=== PATIENT | female | born 1980 | race Caucasian/White ===

== ENCOUNTER 2020-05-12 23:59 | Emergency (ER) | payer OTHER, SELFPAY ==
[2020-05-13 00:34] VITALS: BP 137/97; PULSE 121; RESP 18; TEMP 37.2; O2SAT 98
[2020-05-13 00:41] VITALS: BP 137/97; PULSE 121; RESP 18; TEMP 37.2; O2SAT 98; BMI 37.5
--- NOTE | 2020-05-13 01:05 | ED_ITS ---
HPI - General Adult General Chief complaint: Upper Respiratory Symptoms Stated complaint: COVID SYMPTOMS Time Seen by Provider: 05/13/20 00:48 Source: patient Mode of arrival: ambulatory Limitations: no limitations History of Present Illness HPI narrative: patient comes to the emergency room complaining of generalized fatigue, chills, no fever chills. Patient states she tested positive for COVID- 19 2-3 months ago, patient states she has similar symptoms as when she started having COVID like symptoms the 1st time. Patient's is in the emergency room with similar symptoms. Related Data Home Medications Medication Instructions Recorded Confirmed No Known Home Meds 05/13/20 05/13/20 Allergies Allergy/AdvReac Type Severity Reaction Status Date / Time Penicillins [PENICILLINS] Allergy Unknown HIVES Verified 05/13/20 00:39 Review of Systems Review of Systems: Constitutional : No Weight loss, complaining of Subjective fever, chills, No Night Sweats, complaining of fatigue and generalized malaise ENT/Mouth : No Hearing loss, No Ear Pain, No Nasal Congestion, No Sinus Pain, No Hoarseness, No sore throat, No Rhinorrhea, No Swallowing Difficulty Eyes: No Eye Pain, No Swelling, No Redness, No Foreign Body, No Discharge, No Vision Changes Cardiovascular : No Chest Pain, No SOB, No Dyspnea on Exertion, No Orthopnea, No Edema, No Palpitations Respiratory : No Cough, No Sputum, No Wheezing, No Smoke Exposure, No Dyspnea Gastrointestinal : No Nausea, No Vomiting, No Diarrhea, No Constipation, No abdominal Pain, No Hematochezia, No Melena Genitourinary : no irregular bleeding, No Dysuria, No Urinary Frequency, No Hematuria, No Urinary Incontinence, No Urgency, No Flank Pain, No Urinary Flow Changes, No Hesitancy Musculoskeletal : No joint pain, No Myalgias, No Joint Swelling Skin : No Skin Lesions, No rash Neuro : No Weakness, No Numbness, No Paresthesias, No Loss of Consciousness, No Dizziness, No Headache Psych : No Anxiety/Panic, No Depression, No SI/HI/AH/VH, No Social Issues, Heme/Lymph: No Bruising, No Bleeding,No Lymphadenopathy Endocrine : No Polyuria, No Polydipsia, No Temperature Intolerance PMF Past Medical History Medical History (Updated 05/13/20 @ 01:09 by Oksana Petty MD) Asthma COVID-19 Social History Social History Alcohol intake: current Alcohol intake frequency: holidays/special occasions only Smoking Status: Current every day smoker Smoked in Last 30 Days: Yes Use of substances other than those prescribed or required for medical reasons: No Advance Directives: No Advance Directives Information Provided: No Physical Exam Vital Signs: Vital Signs: Vital Signs Temp Pulse Resp BP Pulse Ox 05/13/20 00:41 99 F 121 H 18 137/97 H 98 05/13/20 00:34 99.0 F 121 H 18 137/97 H 98 Body Mass Index 37.5 Appearance: Alert. Oriented X3. No acute distress. Eyes: Pupils equal, round and reactive to light. ENT: Pharynx normal. Neck: Normal inspection. Neck supple. No lymph nodes noted. No crepitus CVS: Normal heart rate and rhythm. Pulses normal. Normal S1 and S2 Respiratory: No respiratory distress. Breath sounds normal. No Wheezing. No rales Abdomen: Soft and nontender. No rigidity. No distention. good BS x4 Skin: Skin warm and dry. Normal skin color. Normal skin turgor. Extremities: No lower extremity edema. No lower extremity edema. No Lacerations. No Rash Neuro: Oriented X 3. No motor deficit. No sensory deficit. Moving all extermities. No slurred speech. Medical Decision Making MDM Narrative Medical decision making narrative: patient's physical exam is normal. Given her symptoms and her family's similar symptoms, we will go ahead and tested for COVID again. Discharge Plan Discharge Clinical Impression: Viral illness Patient Disposition: Home, Self-Care Instructions: Viral Syndrome (ED) Additional Instructions: you were tested for COVID-19 today, you will receive a phone call at home within 72 hours. Please remains of isolated. Please follow-up with your primary care physician tomorrow. If you have any worsening or new symptoms, please return to the emergency room or call 911 Prescriptions: No Action No Known Home Meds RF: 0
== END 2020-05-13 01:20 | disposition home or self-care (01) ==
PROVIDERS: Emergency Provider Emergency Medicine
DX: B34.9 Viral infection, unspecified (principal); R53.83 Other fatigue; Z20.828 Contact with and (suspected) exposure to other viral communicable diseases; F17.200 Nicotine dependence, unspecified, uncomplicated; Z71.6 Tobacco abuse counseling
CPT/HCPCS: 87635; 99283; 99284

== ENCOUNTER 2020-05-20 04:32 | Emergency (ER) | payer OTHER, SELFPAY ==
[2020-05-20 04:48] VITALS: BP 159/94; PULSE 100; RESP 18; TEMP 37.7; O2SAT 98; BMI 36.3
[2020-05-20 05:05] LABS: Appearance Urine CLEAR; Color Urine YELLOW; Glucose Urine UA NEG (NEG); Leukocyte Esterase Urine NEG (NEG); Nitrite Urine NEG (NEG); PH 5.5 (5.0-8.0); Specific Gravity - Urine 1.025 (1.005-1.025); Urine Blood TRACE (NEG); Urine Ketones NEG (NEG); Urine Protein NEG (NEG-TRACE)
[2020-05-20 05:06] LABS: UPreg QC Valid YES; Urine Pregnancy NEGATIVE (NEGATIVE)
[2020-05-20 05:11] LABS: Mucus Urine 2+ /LPF; RBC Urine 0-2 /HPF (0); Squamous Epithelial Cell Urine 1+ /LPF; WBC Urine 0-2 /HPF (0-4)
--- NOTE | 2020-05-20 05:13 | XR_ITS ---
EXAMINATION: XR CHEST CLINICAL INFORMATION: Cough COMPARISON: 11/23/2019 TECHNIQUE: Frontal view of the chest was obtained. FINDINGS: The lungs are well expanded. Faint patchy bilateral mid to lower lung airspace opacities are noted. No pleural effusion or pneumothorax. The cardiomediastinal silhouette is within normal limits. No osseous abnormality. XR/XR chest 1V IMPRESSION: Faint patchy bilateral mid to lower lung opacities are noted which may be infectious in nature, including viral pneumonia.
--- NOTE | 2020-05-20 05:22 | ED.GENADULT ---
HPI - General Adult General Chief complaint: General Medical Stated complaint: Covid symptoms Time Seen by Provider: 05/20/20 05:13 History of Present Illness HPI narrative: Patient is a 40-year-old female with a previous history of Coronavirus back in October. Presented today with having mild coughing lower headache. Little generalized malaise. A little burning on urination. Does not feel quite right. Some sore throat some earache associated with the symptoms as well. Patient denies any focal weakness. Denies any new medication. Denies any change in environment. Did not have any exposure to coronavirus again. Patient from home. Does not think she is . Did not miss her menstrual period. Related Data Previous Rx's Medication Instructions Recorded doxycycline hyclate 100 mg PO BID #14 cap 05/20/20 ibuprofen 400 mg PO Q6H PRN #20 tab 05/20/20 Allergies Allergy/AdvReac Type Severity Reaction Status Date / Time Penicillins [PENICILLINS] Allergy Unknown HIVES Verified 05/20/20 04:48 Review of Systems Review of Systems: Constitutional: No Weight loss, No Fever, No Chills, No Night Sweats, positive Fatigue, positive Malaise ENT/Mouth: No Hearing loss, No Ear Pain, No Nasal Congestion, No Sinus Pain, No Hoarseness, positive sore throat, No Rhinorrhea, No Swallowing Difficulty Eyes: No Eye Pain, No Swelling, No Redness, No Foreign Body, No Discharge, No Vision Changes Cardiovascular: No Chest Pain, No SOB, No Dyspnea on Exertion, No Orthopnea, No Edema, No Palpitations Respiratory: Positive Cough, No Sputum, No Wheezing, No Smoke Exposure, No Dyspnea Gastrointestinal: No Nausea, No Vomiting, No Diarrhea, No Constipation, No abdominal Pain, No Hematochezia, No Melena Genitourinary: no irregular bleeding, No Dysuria, No Urinary Frequency, No Hematuria, No Urinary Incontinence, No Urgency, No Flank Pain, No Urinary Flow Changes, No Hesitancy Musculoskeletal: No joint pain, positive Myalgias, No Joint Swelling Skin: No Skin Lesions, No rash Neuro: No Weakness, No Numbness, No Paresthesias, No Loss of Consciousness, No Dizziness, positive Headache Psych: No Anxiety/Panic, No Depression, No SI/HI/AH/VH, No Social Issues, Heme/Lymph: No Bruising, No Bleeding,No Lymphadenopathy Endocrine: No Polyuria, No Polydipsia, No Temperature Intolerance [facility] Past Medical History Medical History Asthma COVID-19 Social History Social History Alcohol intake: current Alcohol intake frequency: holidays/special occasions only Smoking Status: Current every day smoker Advance Directives: No Advance Directives Information Provided: No Physical Exam Vital Signs: Vital Signs: Vital Signs Temp Pulse Resp BP Pulse Ox 05/20/20 04:48 99.9 F 100 18 159/94 H 98 Body Mass Index 36.3 Appearance: Alert. Oriented X3. No acute distress. Eyes: Pupils equal, round and reactive to light. ENT: Pharynx normal. Neck: Normal inspection. Neck supple. No lymph nodes noted. No crepitus CVS: Normal heart rate and rhythm. Pulses normal. Normal S1 and S2 Respiratory: No respiratory distress. Breath sounds normal. No Wheezing. No rales Abdomen: Soft and nontender. No rigidity. No distention. good BS x4 Skin: Skin warm and dry. Normal skin color. Normal skin turgor. Extremities: No lower extremity edema. Neurovascular intact to all extremities. No Lacerations. No Rash Neuro: Oriented X 3. No motor deficit. No sensory deficit. Moving all extermities. No slurred speech Medical Decision Making MDM Narrative Medical decision making narrative: Patient's chest x-ray showed a possible pneumonia. Otherwise well appearing. Will retest patient for coronavirus. Will start patient on doxycycline. Urine was negative for infection. Patient's test was negative. O2 sats 99% on room air. Vital signs are stable. Will discharge patient home. Close follow-up on an outpatient basis. Differential Diagnosis Differential Diagnosis: Pneumonia, COVID, strep throat, otitis media, UTI Lab Data Lab results reviewed: Yes I reviewed the patient's lab results. Labs: Lab Results 05/20/20 05/20/20 Range/Units 04:59 05:16 POC Glucose 136 H (60-115) mg/dL Urine Color YELLOW Urine Appearance CLEAR Urine pH 5.5 (5.0-8.0) Ur Specific [place] 1.025 (1.005-1.025) Urine Protein NEG (NEG-TRACE) MG/DL Urine Glucose (UA) NEG (NEG) MG/DL Urine Ketones NEG (NEG) MG/DL Urine Blood TRACE (NEG) Urine Nitrite NEG (NEG) Ur Leukocyte Esterase NEG (NEG) Urine RBC 0-2 (0) /HPF Urine WBC 0-2 (0-4) /HPF Ur Squamous Epith Cells 1+ /LPF Urine Bacteria NONE /LPF Urine Mucus 2+ /LPF Urine Test NEGATIVE (NEGATIVE) Discharge Plan Discharge Clinical Impression: Viral illness, COVID-19, Pneumonia Patient Disposition: Home, Self-Care Instructions: Community Acquired Pneumonia (ED), Viral Syndrome (ED), COVID-19 (Coronavirus Disease 2019) (ED) Additional Instructions: Please follow strict home quarantine to all symptom has resolved for at least 2 days. Prescriptions: New ibuprofen 400 mg tablet 400 mg PO Q6H PRN (Reason: pain) Qty: 20 RF: 0 doxycycline hyclate 100 mg capsule 100 mg PO BID Qty: 14 RF: 0 Referrals: Physician,Unknown [Primary Care Provider] - 2 days
[2020-05-20 05:23] LABS: Glucose, Whole Blood 136 mg/dL (60-115)
--- NOTE | 2020-05-20 05:25 | PC.NURSE ---
pt yu x 3 with equal and non labored rr. pt skin wpd. pt ambulates without assistance. pt speaking in cler and full sentences. pt stated she has multiple covid like symptoms including chills, fevers, weakness ect. tested negative last . pt swabbed for covid. states she took ibuprofen 1 hour lighter captain. temp 99.9 orally.
--- NOTE | 2020-05-20 06:16 | PC.NURSE ---
pt medicated with first antibiotic and d.c
== END 2020-05-20 06:17 | disposition home or self-care (01) ==
PROVIDERS: Emergency Provider Emergency Medicine Emergency Medical Services
DX: U07.1 COVID-19 (principal); J18.9 Pneumonia, unspecified organism; R05 Cough; B34.9 Viral infection, unspecified; F17.200 Nicotine dependence, unspecified, uncomplicated; Z71.6 Tobacco abuse counseling; Z79.899 Other long term (current) drug therapy
CPT/HCPCS: 71045; 81001; 81025; 82947; 99283

== ENCOUNTER 2020-05-22 20:14 | Inpatient (IN) | payer OTHER, SELFPAY ==
--- NOTE | 2020-05-22 22:50 | XR_ITS ---
EXAMINATION: XR CHEST CLINICAL INFORMATION: Cough, shortness of breath COMPARISON: Chest x-ray 11/23/2019, 05/20/2020 TECHNIQUE: Frontal portable view of the chest was obtained. 11:03 PM FINDINGS: Nodular bilateral airspace opacities have progressed since prior chest x-ray of 05/20/2020. No pleural effusion. Cardiac and mediastinal contours are unchanged. No pulmonary vascular congestion. XR/XR chest 1V IMPRESSION: Worsening multifocal bilateral airspace opacities since prior exam of 05/20/2020.
--- NOTE | 2020-05-22 23:05 | ED_ITS ---
HPI - SOB/Dyspnea General Chief Complaint: Upper Respiratory Symptoms Stated Complaint: FLU LIKE Time Seen by Provider: 05/22/20 21:18 Source: patient Mode of arrival: ambulatory Limitations: no limitations History of Present Illness HPI Narrative: this is a pleasant 40-year-old female with past medical history significant for asthma who presents today with complaint of cough and worsening shortness of breath. States she was here on May 20 ( 2 days ago) with similar symptoms at that time was diagnosed with pneumonia given antibiotics of doxycycline states she has been taking this however her symptoms have become worse. She does feel chills and body aches however there is no fever. MD elicited complaint: shortness of breath Pertinent past history: asthma Onset (ago): day(s) Context: recent illness Timing: constant Severity: moderate Relieving factors: nothing Associated symptoms: chest pain, pain with inspiration, cough and wheezing Related Data Previous Rx's Medication Instructions Recorded doxycycline hyclate 100 mg PO BID #14 cap 05/20/20 ibuprofen 400 mg PO Q6H PRN #20 tab 05/20/20 Allergies Allergy/AdvReac Type Severity Reaction Status Date / Time Penicillins [PENICILLINS] Allergy Unknown HIVES Verified 05/20/20 04:48 Review of Systems Review of Systems: Constitutional: No Weight loss, No Fever, + Chills, No Night Sweats, No Fatigue, No Malaise ENT/Mouth: No Hearing loss, No Ear Pain, No Nasal Congestion, No Sinus Pain, No Hoarseness, No sore throat, No Rhinorrhea, No Swallowing Difficulty Eyes: No Eye Pain, No Swelling, No Redness, No Foreign Body, No Discharge, No Vision Changes Cardiovascular: + cough / Chest Pain, + SOB, No Dyspnea on Exertion, No Orthopnea, No Edema, No Palpitations Respiratory: + Cough, No Sputum, No Wheezing, No Smoke Exposure, No Dyspnea Gastrointestinal: No Nausea, No Vomiting, No Diarrhea, No Constipation, No abdominal Pain, No Hematochezia, No Melena Genitourinary: no irregular bleeding, No Dysuria, No Urinary Frequency, No Hematuria, No Urinary Incontinence, No Urgency, No Flank Pain, No Urinary Flow Changes, No Hesitancy Musculoskeletal: No joint pain, No Myalgias, No Joint Swelling Skin: No Skin Lesions, No rash Neuro: No Weakness, No Numbness, No Paresthesias, No Loss of Consciousness, No Dizziness, No Headache Psych: No Anxiety/Panic, No Social Issues Heme/Lymph: No Bruising, No Bleeding,No Lymphadenopathy Endocrine: No Polyuria, No Polydipsia, No Temperature Intolerance Yes all other systems are reviewed and are negative [facility] Past Medical History Attestation statement: The following information was validated with the patient. Medical History (Updated 05/23/20 @ 01:49 by Barron Magdaleno NP) Asthma COVID-19 Surgical History (Updated 05/23/20 @ 00:37 by Wendy Crandall) H/O hernia repair H/O: Social History Social History Alcohol intake: current Alcohol intake frequency: holidays/special occasions only Smoking Status: Current every day smoker Advance Directives: No Advance Directives Information Provided: No Physical Exam Vital Signs: Vital Signs: Vital Signs Temp Pulse Resp BP Pulse Ox 05/23/20 01:35 100 20 144/91 H 98 05/23/20 00:32 100.2 F 95 20 146/94 H 98 Body Mass Index 36.2 Reviewed Const: General: cooperative and healthy appearing; No acute distress or i ntoxicated appearing Nutritional Appearance: average body habitus Orientation/consciousness: patient oriented x3 HENMT: Head: Yes normal to inspection Ears: hearing grossly normal bilaterally Eyes: General: appearance normal, both eyes and all related structures Visual Connell: normal visual connell by confrontation Neck: Neck: Yes normal visual inspection and No tender Thyroid: Thyroid normal Chest: Chest palpation & inspection: normal inspection of the chest Resp: Effort & Inspection: normal respiratory effort Auscultation: wheezes ( Mild forced expiratory) upper bilaterally Cardio: Jugular venous distension: no JVD GI: Inspection: Yes normal to inspection Percussion: Yes normal to percussion Auscultation: normal bowel sounds : General: Yes no CVA tenderness Back/Spine/Pelvis: Back: no CVA tenderness Skin: General skin exam: no rashes or lesions noted Neuro: General: patient oriented x3 Extrem: General: Yes normal to inspection Course Course Course Narrative: 2119 interviewed 40-year-old female with above history of asthma recent dx c pna dc on doxy - returns feeling worse. This time will go ahead and check COVID certification labs, lactic acid and blood cultures. Will treat with nebs / IV steroids. Sepsis focused exam completed. Reevaluation(s) Reevaluation #1: 2305 Reportedly due to shortage of staffing patient still has not had labs done yet. 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 given no wound infection on her previous chest x-ray with suspected pneumonia Levaquin was already ordered given her allergy to penicillin. 0032 Now with wbc<, HR, infiltrate on cxr meets sepsis criteria as suspected given Fluids/Levaquin. No criteria for severe sepsis. 0130 CDW hospitalist for admission- MDM - SOB/Dyspnea Differential Diagnosis Differential diagnosis: Likely acute exacerbation of chronic obstructive airways disease, pneumonia and asthma with exacerbation; Unlikely congestive heart failure, pulmonary embolism, pleural effusion, sleep apnea and anemia Lab Data Result diagrams: 05/23/20 00:01 05/23/20 00:01 Labs: Lab Results 05/23/20 05/23/20 05/23/20 Range/Units 00:01 00:01 00:01 WBC 4.3 L (4.8-10.8) X10*3/uL RBC 4.26 (4.20-5.50) X10*6/uL Hgb 11.2 L (12.0-16.0) g/dl Hct 37.5 (37-47) % MCV 88.0 (80-98) fL MCH 26.3 L (27.0-33.0) pg MCHC 29.9 L (31.0-35.0) g/dl RDW 16.4 H (11.0-16.0) % Plt Count 276 (160-400) X10*3/uL MPV 10.9 (9.4-12.3) fL Immature Gran % (Auto) 1.2 H (0.0-0.4) % Neut % (Auto) 53.9 (45-73) % Lymph % (Auto) 30.7 (20-40) % Hale % (Auto) 13.8 H (2-11) % Eos % (Auto) 0.2 (0-4) % Baso % (Auto) 0.2 (0-2) % Lymph # (Auto) 1.3 (1.2-4.9) X10*3/uL Hale # (Auto) 0.6 (0.1-1.2) X10*3/uL Eos # (Auto) 0.0 (0.0-0.4) X10*3/uL Baso # (Auto) 0.0 (0.0-0.2) X10*3/uL Abs Immat Gran (auto) 0.05 H (0.00-0.03) X10*3/uL Absolute Neuts (auto) 2.3 (2.0-8.3) X10*3/uL Absolute Nucleated RBC 0.000 (0.0-0.012) X10*3/uL Nucleated RBC % (auto) 0.0 (0.0-0.2) /100WBC Sodium 137 (135-145) mmol/L Potassium 4.3 (3.3-5.1) mmol/l Chloride 103 (96-108) mmol/L Carbon Dioxide 23 (22-29) mmol/L Anion Gap 15 (12-20) BUN 10 (9-16) mg/dL Creatinine 0.75 (0.5-1.4) mg/dL Estim Creat Clear Calc 109.0 Estimated GFR > 60 Random Glucose 101 (60-115) mg/dL Lactic Acid 1.0 (0.5-2.0) mmol/L Calcium 8.4 (8.4-10.2) mg/dL Total Bilirubin 0.3 (0.0-1.0) mg/dL AST 55 H (5-31) U/L ALT 84 H (0-31) U/L Alkaline Phosphatase 103 (39-117) U/L Troponin I High Sens (<3.5-17.0) ng/L B-Natriuretic Peptide (<100) pg/mL Total Protein 7.9 (6.5-8.0) g/dL Albumin 4.4 (3.5-5.0) g/dL Coronavirus (PCR) (Negative) 05/23/20 05/23/20 Range/Units 00:01 00:19 WBC (4.8-10.8) X10*3/uL RBC (4.20-5.50) X10*6/uL Hgb (12.0-16.0) g/dl Hct (37-47) % MCV (80-98) fL MCH (27.0-33.0) pg MCHC (31.0-35.0) g/dl RDW (11.0-16.0) % Plt Count (160-400) X10*3/uL MPV (9.4-12.3) fL Immature Gran % (Auto) (0.0-0.4) % Neut % (Auto) (45-73) % Lymph % (Auto) (20-40) % Hale % (Auto) (2-11) % Eos % (Auto) (0-4) % Baso % (Auto) (0-2) % Lymph # (Auto) (1.2-4.9) X10*3/uL Hale # (Auto) (0.1-1.2) X10*3/uL Eos # (Auto) (0.0-0.4) X10*3/uL Baso # (Auto) (0.0-0.2) X10*3/uL Abs Immat Gran (auto) (0.00-0.03) X10*3/uL Absolute Neuts (auto) (2.0-8.3) X10*3/uL Absolute Nucleated RBC (0.0-0.012) X10*3/uL Nucleated RBC % (auto) (0.0-0.2) /100WBC Sodium (135-145) mmol/L Potassium (3.3-5.1) mmol/l Chloride (96-108) mmol/L Carbon Dioxide (22-29) mmol/L Anion Gap (12-20) BUN (9-16) mg/dL Creatinine (0.5-1.4) mg/dL Estim Creat Clear Calc Estimated GFR Random Glucose (60-115) mg/dL Lactic Acid (0.5-2.0) mmol/L Calcium (8.4-10.2) mg/dL Total Bilirubin (0.0-1.0) mg/dL AST (5-31) U/L ALT (0-31) U/L Alkaline Phosphatase (39-117) U/L Troponin I High Sens < 3.5 (<3.5-17.0) ng/L B-Natriuretic Peptide < 10 (<100) pg/mL Total Protein (6.5-8.0) g/dL Albumin (3.5-5.0) g/dL Coronavirus (PCR) POSITIVE A (Negative) ECG Data Interpretation: Sinus tachycardia [address] segment changes P.r. interval wnl Discharge Plan Discharge Clinical Impression: COVID-19, Asthma, Pneumonia Patient Disposition: Admitted As Inpatient Prescriptions: No Action ibuprofen 400 mg tablet 400 mg PO Q6H PRN (Reason: pain) Qty: 20 RF: 0 doxycycline hyclate 100 mg capsule 100 mg PO BID Qty: 14 RF: 0
--- NOTE | 2020-05-22 23:40 | PC.NURSE ---
FIRST CONTACT WITH PT. BROUGHT TO 1 FOR TREATMENT. SITTING UP IN BED SKIN PWD RESPIRATIONS EVEN SLIGHTLY LABORED WITH MOVEMENT AND COUGH. REPORTS 2 WEEKS OF PROGRESSIVE ILLNESS. NEGATIVE COVID 05/12, REPEAT WITH NO RESULTS 05/19. DC WITH PNEUMONIA 05/19 ON PO ANTIBIOTICS WITH NO IMPROVEMENT. FAMILY MEMBER COVID +. 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 AWAITING FURTHER TESTING.
[2020-05-22 23:45] VITALS: O2SAT 98
[2020-05-23] VITALS (9 sets, daily range): BP systolic 114–164; BP diastolic 68–94; PULSE 48–100; RESP 16–20; TEMP 36.1–37.9; O2SAT 96–98; BMI 36.2
[2020-05-23] MEDS: 0.9 % Sodium Chloride 500 ML 1000 ML IV (00:07)
[2020-05-23] MEDS: levoFLOXacin/D5W 750 MG/150 ML PIGGYBACK 100 MG IV (00:22)
[2020-05-23 00:23] LABS: MANUAL DIFF FLAG NO
[2020-05-23] MEDS: methylPREDNISolone Sod Succ/PF 125 MG/2 ML VIAL IVPUSH (00:23)
[2020-05-23 00:24] LABS: Basophils Percent Auto 0.2 % (0-2); Eosinophils Percent Auto 0.2 % (0-4); Hematocrit 37.5 % (37-47); Hemoglobin 11.2 g/dl (12.0-16.0); Imm Gran Abs Auto 0.05 X10*3/uL (0.00-0.03); Imm Gran Pct Auto 1.2 % (0.0-0.4); Lymphocytes Absolute Auto 1.3 X10*3/uL (1.2-4.9); Lymphocytes Percent Auto 30.7 % (20-40); Mean Corpuscular HGB Conc 29.9 g/dl (31.0-35.0); Mean Corpuscular Hemoglobin 26.3 pg (27.0-33.0); Mean Platelet Volume 10.9 fL (9.4-12.3); Monocytes Absolute Auto 0.6 X10*3/uL (0.1-1.2); Monocytes Percent Auto 13.8 % (2-11); Neutrophils Absolute Auto 2.3 X10*3/uL (2.0-8.3); Neutrophils Percent Auto 53.9 % (45-73); Platelet Count 276 X10*3/uL (160-400); Red Blood Count 4.26 X10*6/uL (4.20-5.50); Red Cell Distribution Width 16.4 % (11.0-16.0); White Blood Count 4.3 X10*3/uL (4.8-10.8)
[2020-05-23 00:55] LABS: Alanine Aminotransferase 84 U/L (0-31); Albumin Level 4.4 g/dL (3.5-5.0); Alkaline Phosphatase 103 U/L (39-117); Anion Gap 15 (12-20); Aspartate Amino Transferase 55 U/L (5-31); Bilirubin Total 0.3 mg/dL (0.0-1.0); Blood Urea Nitrogen 10 mg/dL (9-16); Calcium 8.4 mg/dL (8.4-10.2); Carbon Dioxide 23 mmol/L (22-29); Chloride 103 mmol/L (96-108); Estimated Glomerular Filt Rate > 60; Glucose Random 101 mg/dL (60-115); Potassium 4.3 mmol/l (3.3-5.1); Sodium 137 mmol/L (135-145); Total Protein 7.9 g/dL (6.5-8.0)
[2020-05-23 00:57] LABS: B Type Natriuretic Peptide < 10 pg/mL (<100); Troponin-I High Sensitivity < 3.5 ng/L (<3.5-17.0)
[2020-05-23] MEDS: Albuterol Sulfate 90 MCG 8 GM INHALER 4 PUFF INHALE (01:21)
[2020-05-23] MEDS: Acetaminophen 325 MG TABLET 975 MG PO (01:32)
[2020-05-23 01:40] LABS: SARS COV2 PCR INHOUSE POSITIVE (Negative)
[2020-05-23 01:54] LABS: Prothrombin Time 11.8 SEC (10.8-13.0)
[2020-05-23 01:57] LABS: D Dimer 238 NG/ML; Partial Thromboplastin Time 29.8 SEC (24.1-38.0)
--- NOTE | 2020-05-23 02:47 | PC.NURSE ---
PT RESTING IN BED AWAITING HOSPITALIST CONSULT. VSS. REPORTS CONTINUED CHEST WALL PAIN AND BODYACHES SOMEWHAT IMPROVED WITH PREVIOUSLY ADMINISTERED MEDICATION.
[2020-05-23 02:50] LABS: Adenovirus PCR Not Detected (Not Detect.); Bordetella parapertussis PCR Not Detected (Not Detect.); Bordetella pertussis PCR Not Detected (Not Detect.); Chlamydia pneumoniae PCR Not Detected (Not Detect.); Coronavirus 229E PCR Not Detected (Not Detect.); Coronavirus HKU1 PCR Not Detected (Not Detect.); Coronavirus NL63 PCR Not Detected (Not Detect.); Coronavirus OC43 PCR Not Detected (Not Detect.); Human metapneumovirus PCR Not Detected (Not Detect.); Influenza A PCR Not Detected (Not Detect.); Influenza B PCR Not Detected (Not Detect.); Mycoplasma pneumoniae PCR Not Detected (Not Detect.); Parainfluenza 1 PCR Not Detected (Not Detect.); Parainfluenza 2 PCR Not Detected (Not Detect.); Parainfluenza 3 PCR Not Detected (Not Detect.); Parainfluenza 4 PCR Not Detected (Not Detect.); RSV PCR Not Detected (Not Detect.); Rhino/Enterovirus PCR Not Detected (Not Detect.)
--- NOTE | 2020-05-23 04:49 | P.HPIM_ITS ---
History of Present Illness Date of Service: 05/23/20 Chief Complaint: shortness of breath this is a 40-year-old female with no significant past medical history of presents to the hospital with complaints of worsening shortness of breath, cough, fever, overall not feeling well. Patient reports that her symptoms started about a week ago with sweating and fevers, she came to the ED, with this is for COVID and was negative. She continued to have worsening symptoms of shortness of breath and cough and return to the hospital on Tuesday of this week and was tested once again for COVID-19 but somehow the results were mislabeled and she never received her test results for the repeat COVID but chest x-ray showed pneumonia and she was sent home on doxycycline. She returns today stating that she continues to feel short of breath, fever, chills, cough, sputum production, low appetite, loss of smell and taste, diarrhea. She reports that her cousin who lives in the same household who works [employer] was tested positive for coronavirus this week and believes that she got a from him. no headache, change in vision, no urinary symptoms and no lower extremity edema. No weakness numbness or tingling. On arrival to the ED patient hemodynamically stable satting 97% on room air. labs are significant for a WBC count of 4.3, AST of 55 ALT of 84, COVID-19 positive, chest x-ray showing worsening multifocal bilateral airspace opacities since prior exam of 05/20 Past medical history: Reports history of asthma when she was a child, but currently is not asthmatic past surgical history: Denies family history:Denies social history: Former smoker, currently does not smoke, no alcohol or illicit drugs Review of Systems Review of Systems: Yes all other systems are reviewed and are negative [facility] Medical History Asthma COVID-19 Surgical History H/O hernia repair H/O: Social History Alcohol intake: never Smoking Status: Current every day smoker Smoked in Last 30 Days: No Advance Directives: No Advance Directives Information Provided: No Meds Allergies Allergy/AdvReac Type Severity Reaction Status Date / Time Penicillins [PENICILLINS] Allergy Unknown HIVES Verified 05/20/20 04:48 Physical Exam Vital Signs and Narrative: Vital Signs: Last Vital Signs Temp 99.9 F 05/23/20 02:37 Pulse 96 05/23/20 02:37 Resp 20 05/23/20 02:37 BP 136/88 05/23/20 02:37 Pulse Ox 97 05/23/20 02:37 Body Mass Index 36.2 Const: General: cooperative and no acute distress Orientation/consciousness: patient oriented x3 Eyes: General: appearance normal, both eyes and all related structures Pupils: Equal, round and reactive pupils present Resp: Other: patient tachypnea, sitting up in bed, satting 97% on room air. Cardio: Rate: regular rate Rhythm: regular rhythm GI: Palpation (GI): Soft to palpation Auscultation: normal bowel sounds Skin: General skin exam: no rashes or lesions noted Neuro: General: patient oriented x3 Cranial nerves: Yes Equal, round and reactive pupils present Cognition (Neuro): normal cognition Extrem: General: Yes normal to inspection and Yes no pedal edema Results Labs Labs: Laboratory Tests 05/23/20 05/23/20 05/23/20 00:01 00:01 00:01 WBC 4.3 L RBC 4.26 Hgb 11.2 L Hct 37.5 MCV 88.0 MCH 26.3 L MCHC 29.9 L RDW 16.4 H Plt Count 276 MPV 10.9 Immature Gran % (Auto) 1.2 H Neut % (Auto) 53.9 Lymph % (Auto) 30.7 [place] % (Auto) 13.8 H Eos % (Auto) 0.2 Baso % (Auto) 0.2 Lymph # (Auto) 1.3 [place] # (Auto) 0.6 Eos # (Auto) 0.0 Baso # (Auto) 0.0 Abs Immat Gran (auto) 0.05 H Absolute Neuts (auto) 2.3 Absolute Nucleated RBC 0.000 Nucleated RBC % (auto) 0.0 PT 11.8 INR 1.0 APTT 29.8 D-Dimer 238 Sodium 137 Potassium 4.3 Chloride 103 Carbon Dioxide 23 Anion Gap 15 BUN 10 Creatinine 0.75 Estim Creat Clear Calc 109.0 Estimated GFR > 60 Random Glucose 101 Lactic Acid Calcium 8.4 Total Bilirubin 0.3 AST 55 H ALT 84 H Alkaline Phosphatase 103 Troponin I High Sens B-Natriuretic Peptide Total Protein 7.9 Albumin 4.4 Coronavirus (PCR) 05/23/20 05/23/20 05/23/20 00:01 00:01 00:19 WBC RBC Hgb Hct MCV MCH MCHC RDW Plt Count MPV Immature Gran % (Auto) Neut % (Auto) Lymph % (Auto) [place] % (Auto) Eos % (Auto) Baso % (Auto) Lymph # (Auto) [place] # (Auto) Eos # (Auto) Baso # (Auto) Abs Immat Gran (auto) Absolute Neuts (auto) Absolute Nucleated RBC Nucleated RBC % (auto) PT INR APTT D-Dimer Sodium Potassium Chloride Carbon Dioxide Anion Gap BUN Creatinine Estim Creat Clear Calc Estimated GFR Random Glucose Lactic Acid 1.0 Calcium Total Bilirubin AST ALT Alkaline Phosphatase Troponin I High Sens < 3.5 B-Natriuretic Peptide < 10 Total Protein Albumin Coronavirus (PCR) POSITIVE A Imaging Chest x-ray: Radiologist's impression: IMPRESSION: Worsening multifocal bilateral airspace opacities since prior exam of 05/20/2020.
[2020-05-23] MEDS: Enoxaparin Sodium 40 MG/0.4 ML SYRINGE SUBCUT (05:09)
[2020-05-23] MEDS: 0.9 % Sodium Chloride Flush 3 ML SYRINGE IVFLUSH ×2 (07:51→14:34)
[2020-05-23 09:22] LABS: SARS-CoV-2 PCR Detected (Not Detect.)
--- NOTE | 2020-05-23 09:31 | MHC.CM.PN ---
pt lives c s.o. in their home. 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 pt's s.o. can help her if she needs, this will include a ride home at dc. pt denies the need for vna at this time. dc plan is home no svcs. cm to cont. to follow.
[2020-05-23] MEDS: dexAMETHasone sod phosphate 4 MG/ML VIAL 6 MG IVPUSH (09:57)
--- NOTE | 2020-05-23 16:35 | W.PM.IDCN ---
History of Present Illness Data of Consult Service Date: 05/23/20 Requesting physician: Austin Shi Primary Care Provider: Unknown Physician HPI Reason for consult: shortness of breath She presents with shortness of breath She has some increased infiltrate lungs She says she was diagnosed COVID in October Now she was around her cousin who has COVID Review of Systems Review of Systems: Yes all other systems are reviewed and are negative PMFSH Past Medical History Medical History Asthma COVID-19 Family History Family history: reviewed and not pertinent Surgical History Surgical History H/O hernia repair H/O: Social History Social History Household Members: Family Housing: House Do you presently have visiting nurse or other home services: No Alcohol intake: never Smoking Status: Current some day smoker Tobacco Type: Cigarette Smoked in Last 30 Days: No Patient Interested in Nicotine Replacement: No Patient Given Instructions on How to Stop Smoking: No Second Hand Smoke Exposure: No Use of substances other than those prescribed or required for medical reasons: No Currently Displaying Signs/Symptoms of Drug Intoxication Withdrawal: No Have you been hit, kicked, punched, or otherwise hurt by someone within the past year? If so, by whom?: No Do you feel safe in your current relationship?: No Is there a partner from a previous relationship who is making you feel unsafe now?: No Are you made to feel afraid or neglected: No Advance Directives: No Advance Directives Information Provided: No Do you have thoughts of harming others: None Do you have a plan to hurt others: No Plan Recently lost weight without trying: No service: No Current occupational status: employed Meds Allergies Allergy/AdvReac Type Severity Reaction Status Date / Time Penicillins [PENICILLINS] Allergy Unknown HIVES Verified 05/20/20 04:48 Physical Exam Vital Signs: Vital Signs: Vital Signs Temp Pulse Resp BP Pulse Ox 05/23/20 16:00 97.6 F 75 16 136/90 H 97 05/23/20 12:00 97.0 F 82 18 148/93 H 96 05/23/20 08:00 98.3 F 86 20 133/89 97 05/23/20 05:06 98.6 F 86 20 126/92 H 97 05/23/20 02:37 99.9 F 96 20 136/88 97 05/23/20 01:35 100 20 144/91 H 98 05/23/20 00:32 100.2 F 95 20 146/94 H 98 05/22/20 23:45 98 Body Mass Index 36.2 Const: General: cooperative HENMT: Head: Yes normal to inspection Mouth: Normal oral and palatal mucosa present Resp: Effort & Inspection: able to speak in complete sentences and decreased respiratory effort Cardio: Rate: regular rate Rhythm: regular rhythm GI: Inspection: Yes normal to inspection Extrem: General: Yes normal to inspection Assessment and Plan (1) COVID-19: Problem details: She has some hypoxia when walking She has been doing better however Possible COVID reinfection,doubt HIV,atypical Status: Acute Steroids Check RVP ? atypical Check HIV Check COVID antibodies (2) Asthma: Status: Acute Results Labs CBC & Chem 7: 05/24/20 08:19 05/24/20 08:19 Labs: Short CBC 05/23/20 Range/Units 00:01 WBC 4.3 L (4.8-10.8) X10*3/uL Hgb 11.2 L (12.0-16.0) g/dl Hct 37.5 (37-47) % Plt Count 276 (160-400) X10*3/uL BMP 05/23/20 00:01 Sodium 137 Potassium 4.3 Chloride 103 Carbon Dioxide 23 BUN 10 Creatinine 0.75 Calcium 8.4 Liver Function 05/23/20 Range/Units 00:01 Total Bilirubin 0.3 (0.0-1.0) mg/dL AST 55 H (5-31) U/L ALT 84 H (0-31) U/L Alkaline Phosphatase 103 (39-117) U/L Albumin 4.4 (3.5-5.0) g/dL Urine 05/23/20 Range/Units 00:04 Urine Color Cancelled Urine Appearance Cancelled Urine pH Cancelled Ur Specific [place] Cancelled Urine Protein Cancelled Urine Glucose (UA) Cancelled
[2020-05-24] MEDS: 0.9 % Sodium Chloride Flush 3 ML SYRINGE IVFLUSH ×3 (00:27→15:49)
[2020-05-24 03:36] VITALS: BP 124/77; PULSE 93; RESP 18; TEMP 37.2; O2SAT 95
[2020-05-24] MEDS: Enoxaparin Sodium 40 MG/0.4 ML SYRINGE SUBCUT (05:18)
[2020-05-24 08:00] VITALS: BP 138/89; PULSE 88; RESP 18; TEMP 36.1; O2SAT 97
[2020-05-24 08:55] LABS: MANUAL DIFF FLAG NO
[2020-05-24 09:04] LABS: Basophils Percent Auto 0.1 % (0-2); Hematocrit 39.1 % (37-47); Hemoglobin 11.6 g/dl (12.0-16.0); Imm Gran Abs Auto 0.07 X10*3/uL (0.00-0.03); Imm Gran Pct Auto 0.7 % (0.0-0.4); Lymphocytes Absolute Auto 1.6 X10*3/uL (1.2-4.9); Lymphocytes Percent Auto 16.1 % (20-40); Mean Corpuscular HGB Conc 29.7 g/dl (31.0-35.0); Mean Corpuscular Hemoglobin 26.2 pg (27.0-33.0); Mean Corpuscular Volume 88.5 fL (80-98); Mean Platelet Volume 11.8 fL (9.4-12.3); Neutrophils Percent Auto 73.1 % (45-73); Platelet Count 232 X10*3/uL (160-400); Red Blood Count 4.42 X10*6/uL (4.20-5.50); Red Cell Distribution Width 16.3 % (11.0-16.0); White Blood Count 9.6 X10*3/uL (4.8-10.8)
[2020-05-24 09:30] LABS: Anion Gap 18 (12-20); Blood Urea Nitrogen 13 mg/dL (9-16); Calcium 8.6 mg/dL (8.4-10.2); Carbon Dioxide 23 mmol/L (22-29); Chloride 103 mmol/L (96-108); Creatinine Clr Calc Pharmacy 116.8; Estimated Glomerular Filt Rate > 60; Glucose Random 119 mg/dL (60-115); Potassium 3.9 mmol/l (3.3-5.1); Sodium 140 mmol/L (135-145)
[2020-05-24 09:34] LABS: Alanine Aminotransferase 71 U/L (0-31); Albumin Level 4.3 g/dL (3.5-5.0); Alkaline Phosphatase 89 U/L (39-117); Aspartate Amino Transferase 44 U/L (5-31); Bilirubin Direct < 0.2 mg/dL (0.0-0.5); Bilirubin Total 0.3 mg/dL (0.0-1.0)
[2020-05-24] MEDS: dexAMETHasone sod phosphate 4 MG/ML VIAL 6 MG IVPUSH (09:44)
[2020-05-24] MEDS: Acetaminophen 325 MG TABLET 650 MG PO ×2 (09:53→18:44)
[2020-05-24 11:19] VITALS: BP 108/71; PULSE 90; RESP 18; TEMP 36.8; O2SAT 95
--- NOTE | 2020-05-24 13:40 | HO.PM.IMPN ---
Subjective Subjective Date of Service: 05/24/20 Review of Systems Patient still feels short of breath, with walking feels more winded. Denies any chest pain or abdominal pain or fever or chills or nausea vomiting or diarrhea. Denies any urinary complaints. Physical Exam Vital Signs: Vital Signs: Vital Signs Temp Pulse Resp BP Pulse Ox 05/24/20 11:19 98.2 F 90 18 108/71 95 05/24/20 08:00 96.9 F 88 18 138/89 97 05/24/20 03:36 98.9 F 93 18 124/77 95 05/23/20 23:52 98.0 F 48 L 18 114/68 97 05/23/20 19:59 97.4 F 79 20 164/88 H 96 05/23/20 16:00 97.6 F 75 16 136/90 H 97 Body Mass Index 36.2 Physical exam: Cvs: [id number], [id number] , no murmur res: Grossly fair entry, slightly diminished at bases, also has some wheezing abd: no rebound or guarding ,nt, bs present. ext pulses present , no cyanosis neuro: axo3 , nonfocal. Objective Data Current Medications Generic Name Dose Route Start Last Admin Trade Name Freq PRN Reason Stop Dose Admin Acetaminophen 650 mg 05/23/20 04:38 05/24/20 09:53 Acetaminophen 325 Mg Tablet PO 650 mg Q6H PRN Administration Pain, Mild (Pain Scale 1-3) Albuterol Sulfate 2 puff 05/23/20 04:58 Albuterol Sulfate 90 Mcg 8 Gm Inhaler INHALE RQ4H PRN Shortness of Breath/Wheezing Dexamethasone Sodium Phosphate 6 mg 05/23/20 09:00 05/24/20 09:44 Dexamethasone Sod Phosphate 4 Mg/Ml Vial IVPUSH 6 mg DAILY SIMRAN Administration Docusate Sodium 100 mg 05/23/20 04:38 Docusate Sodium 100 Mg Capsule PO DAILY PRN Constipation Enoxaparin Sodium 40 mg 05/23/20 06:00 05/24/20 05:18 Enoxaparin Sodium 40 Mg/0.4 Ml Syringe SUBCUT 40 mg Q24H SIMRAN Administration Ondansetron HCl 4 mg 05/23/20 04:38 Ondansetron Hcl 4 Mg/2 Ml Vial IVPUSH Q8H PRN Nausea and Vomiting Sodium Chloride 3 ml 05/23/20 08:00 05/24/20 09:44 0.9 % Sodium Chloride Flush 3 Ml Syringe IVFLUSH 3 ml QSHIFT SIMRAN Administration Labs CBC & Chem 7: 05/24/20 08:19 05/24/20 08:19 Microbiology Microbiology Results: Microbiology 05/23/20 00:15 Blood - Venous Blood Culture - Preliminary No growth after 24 hours. 05/23/20 00:14 Blood - Venous Blood Culture - Preliminary No growth after 24 hours. Assessment and Plan (1) COVID-19: Problem details: She has some hypoxia when walking She has been doing better however Possible COVID reinfection,doubt HIV,atypical Status: Acute (2) Asthma: Status: Acute Assessment and Plan: 40-year-old female who presents to the hospital with worsening respiratory status, she is for COVID positive and has pneumonia 1. COVID-19 pneumonia no hypoxia, hemodynamically stable, but has high potential for worsening respiratory status as her chest x-ray shows worsening bilateral multifocal infiltrates within 3 days monitor respiratory status, O2 as required, Ventolin p.r.n. Id saw the patient-HIV and COVID antibody testing added Will continue supportive care with dexamethasone and oxygen for now. 2. leukopenia most likely secondary to COVID-19 3. transaminitis mildly elevated AST and ALT.most likely secondary to COVID-19, patient has no history of hepatitis and no history of alcohol abuse today LFTs is slightly improving than yesterday
[2020-05-24 15:34] VITALS: BP 115/69; PULSE 84; RESP 18; TEMP 36.8; O2SAT 97
[2020-05-24 19:22] VITALS: BP 106/72; PULSE 79; RESP 20; TEMP 37.1; O2SAT 96
[2020-05-24 23:39] VITALS: BP 134/80; PULSE 71; RESP 18; TEMP 36.7; O2SAT 96
[2020-05-25] MEDS: 0.9 % Sodium Chloride Flush 3 ML SYRINGE IVFLUSH ×4 (00:11→20:28)
[2020-05-25] MEDS: Acetaminophen 325 MG TABLET 650 MG PO ×3 (01:59→20:32)
[2020-05-25 04:00] VITALS: BP 124/71; PULSE 76; RESP 18; TEMP 36.4; O2SAT 97
[2020-05-25] MEDS: Enoxaparin Sodium 40 MG/0.4 ML SYRINGE SUBCUT (05:00)
[2020-05-25 07:48] LABS: SARS COV2 IgG Positive (Negative)
[2020-05-25] MEDS: dexAMETHasone sod phosphate 4 MG/ML VIAL 6 MG IVPUSH (09:13)
[2020-05-25] MEDS: guaiFEN/Codeine SF 200/20/10ML 10 ML LIQUID PO ×2 (10:51→20:28)
[2020-05-25 11:42] VITALS: BP 121/73; PULSE 72; RESP 18; TEMP 36.3; O2SAT 96
--- NOTE | 2020-05-25 12:52 | HO.PM.IMPN ---
Subjective Subjective Date of Service: 05/25/20 Interval History: covid inf Review of Systems Patient says she is feeling still very tired, otherwise her shortness of breath is slightly better can able to go up to the bathroom, Physical Exam Vital Signs: Vital Signs: Vital Signs Temp Pulse Resp BP Pulse Ox 05/25/20 11:42 97.3 F 72 18 121/73 96 05/25/20 04:00 97.5 F 76 18 124/71 97 05/24/20 23:39 98.0 F 71 18 134/80 96 05/24/20 19:22 98.7 F 79 20 106/72 96 05/24/20 15:34 98.3 F 84 18 115/69 97 Body Mass Index 36.2 Physical exam: Constitutional: Patient without any distress HEENT: Sclera normal, neck supple Cvs: rrr, [id number] , no murmur res: clear to auscultation ,no rhonchii or wheezing abd: no rebound or guarding ,nt, bs present. ext pulses present , no cyanosis neuro: axo3 , nonfocal. Objective Data Current Medications Generic Name Dose Route Start Last Admin Trade Name Freq PRN Reason Stop Dose Admin Acetaminophen 650 mg 05/23/20 04:38 05/25/20 10:51 Acetaminophen 325 Mg Tablet PO 650 mg Q6H PRN Administration Pain, Mild (Pain Scale 1-3) Albuterol Sulfate 2 puff 05/23/20 04:58 Albuterol Sulfate 90 Mcg 8 Gm Inhaler INHALE RQ4H PRN Shortness of Breath/Wheezing Dexamethasone Sodium Phosphate 6 mg 05/23/20 09:00 05/25/20 09:13 Dexamethasone Sod Phosphate 4 Mg/Ml Vial IVPUSH 6 mg DAILY SIMRAN Administration Docusate Sodium 100 mg 05/23/20 04:38 Docusate Sodium 100 Mg Capsule PO DAILY PRN Constipation Enoxaparin Sodium 40 mg 05/23/20 06:00 05/25/20 05:00 Enoxaparin Sodium 40 Mg/0.4 Ml Syringe SUBCUT 40 mg Q24H SIMRAN Administration Guaifenesin/Codeine Phosphate 10 ml 05/25/20 10:06 05/25/20 10:51 Guaifen/Codeine Sf 200/20/10ml 10 Ml Liquid PO 10 ml Q6H PRN Administration Cough Ondansetron HCl 4 mg 05/23/20 04:38 Ondansetron Hcl 4 Mg/2 Ml Vial IVPUSH Q8H PRN Nausea and Vomiting Sodium Chloride 3 ml 05/23/20 08:00 05/25/20 09:13 0.9 % Sodium Chloride Flush 3 Ml Syringe IVFLUSH 3 ml QSHIFT SIMRAN Administration Labs CBC & Chem 7: 05/24/20 08:19 05/24/20 08:19 Microbiology Microbiology Results: Microbiology 05/23/20 00:15 Blood - Venous Blood Culture - Preliminary No growth after 48 hours. 05/23/20 00:14 Blood - Venous Blood Culture - Preliminary No growth after 48 hours. Assessment and Plan (1) COVID-19: Problem details: She has some hypoxia when walking She has been doing better however Possible COVID reinfection,doubt HIV,atypical Status: Acute (2) Asthma: Status: Acute Assessment and Plan: 40-year-old female who presents to the hospital with worsening respiratory status, she is for COVID positive and has pneumonia 1. COVID-19 pneumonia no hypoxia, hemodynamically stable, but has high potential for worsening respiratory status as her chest x-ray shows worsening bilateral multifocal infiltrates within 3 days monitor respiratory status, O2 as required, Ventolin p.r.n. Id saw the patient-HIV pending and COVID antibody positive continue supportive care with dexamethasone and oxygen for now. 2. leukopenia most likely secondary to COVID-19 3. transaminitis mildly elevated AST and ALT.most likely secondary to COVID-19, patient has no history of hepatitis and no history of alcohol abuse today LFTs is slightly improving than yesterday
[2020-05-25 15:36] VITALS: BP 132/90; PULSE 95; RESP 20; TEMP 36.7; O2SAT 95
[2020-05-25 19:38] VITALS: BP 132/86; PULSE 70; RESP 20; TEMP 36.7; O2SAT 96
[2020-05-25 23:38] VITALS: BP 132/70; PULSE 65; RESP 20; TEMP 37.1; O2SAT 96
[2020-05-26 03:28] VITALS: BP 132/85; PULSE 66; RESP 18; TEMP 36.7; O2SAT 96
[2020-05-26 04:14] LABS: HIV AB/AG Nonreactive (Nonreactive)
[2020-05-26] MEDS: Enoxaparin Sodium 40 MG/0.4 ML SYRINGE SUBCUT (05:14)
[2020-05-26 08:00] VITALS: BP 138/91; PULSE 64; RESP 18; TEMP 36.6; O2SAT 94
[2020-05-26] MEDS: dexAMETHasone sod phosphate 4 MG/ML VIAL 6 MG IVPUSH (08:23)
[2020-05-26] MEDS: 0.9 % Sodium Chloride Flush 3 ML SYRINGE IVFLUSH (08:23)
[2020-05-26] MEDS: Acetaminophen 325 MG TABLET 650 MG PO (08:33)
[2020-05-26] MEDS: guaiFEN/Codeine SF 200/20/10ML 10 ML LIQUID PO (08:34)
--- NOTE | 2020-05-26 08:48 | MHC.CM.PN ---
dc plan is home no svcs at this time. cm to cont to follow for changes in medical condition and dc needs.
--- NOTE | 2020-05-26 09:21 | PM.DS ---
DS: Providers Provider Date of admission: 05/23/20 03:55 Primary care physician: Unknown Physician Consults: 05/23/20 13:45 Consult to Infectious Diseases Routine Consulting Provider: Alondra Leon Reason for consultation: COVID pneumonia Has provider been notified: No DS: Diagnosis Discharge Diagnosis (1) COVID-19: Status: Acute Problem details: She has some hypoxia when walking She has been doing better however Possible COVID reinfection,doubt HIV,atypical (2) Asthma: Status: Acute (3) Elevated liver function tests: Status: Acute DS: Summary Hospital Course Hospital Course: 40-year-old female with no significant past medical history of presents to the hospital with complaints of worsening shortness of breath, cough, fever, overall not feeling well. Patient reports that her symptoms started about a week ago with sweating and fevers, she came to the ED, with this is for COVID and was negative. She continued to have worsening symptoms of shortness of breath and cough and return to the hospital on Tuesday of this week and was tested once again for COVID-19 but somehow the results were mislabeled and she never received her test results for the repeat COVID but chest x-ray showed pneumonia and she was sent home on doxycycline. She returns today stating that she continues to feel short of breath, fever, chills, cough, sputum production, low appetite, loss of smell and taste, diarrhea. She reports that her cousin who lives in the same household who works S [employer] was tested positive for coronavirus this week and believes that she got a from him. no headache, change in vision, no urinary symptoms and no lower extremity edema. No weakness numbness or tingling. On arrival to the ED patient hemodynamically stable satting 97% on room air. labs are significant for a WBC count of 4.3, AST of 55 ALT of 84, COVID-19 positive, chest x-ray showing worsening multifocal bilateral airspace opacities since prior exam of 05/20 Past medical history: Reports history of asthma when she was a child, but currently is not asthmatic. Hospital Course problem sin section: 40-year-old female who presents to the hospital with worsening respiratory status, she is for COVID positive and has pneumonia 1. COVID-19 pneumonia: Patient shortness of breath improving Still has some cough Patient does not have any hypoxia even though she has bilateral infiltrate on the chest x-ray probably related to COVID. Patient was initially started on dexamethasone, supportive care with the cough medication Hycodan and Seen by infectious disease patient HIV testing seems nonreactive. In addition patient is COVID IgG antibody positive Her shortness of breath is improving, discussed with the infectious disease patient can go home with p.o. dexamethasone. Patient is going home with p.o. dexamethasone and cough medications. 2. leukopenia: Seems improved. Probably related to COVID infection,. 3. transaminitis:mildly elevated AST and ALT.most likely secondary to COVID-19, patient has no history of hepatitis and no history of alcohol abuse Seems improving, monitor LFTs with PCP out patiently and further management as per PCP. Time Spent with Patient Time attestation: Total time spent providing and/or coordinating discharge services: Physical Exam Vital Signs: Vital Signs: Vital Signs Temp Pulse Resp BP Pulse Ox 05/26/20 08:00 98 F 64 18 138/91 H 94 05/26/20 03:28 98.1 F 66 18 132/85 96 05/25/20 23:38 98.7 F 65 20 132/70 96 05/25/20 19:38 98.0 F 70 20 132/86 96 05/25/20 15:36 98.1 F 95 20 132/90 H 95 05/25/20 11:42 97.3 F 72 18 121/73 96 Body Mass Index 36.2 Physical exam: Cvs: rrr, [id number] , no murmur res: clear to auscultation ,no rhonchii or wheezing abd: no rebound or guarding ,nt, bs present. ext pulses present , no cyanosis neuro: axo3 , nonfocal. DS: Data Data Completed and Pending Labs on day of discharge: Labs from last 24 hours 05/23/20 19:24 HIV 1&2 Ab/P24 Ag 4thGn Nonreactive Preliminary micro results at discharge 05/23/20 00:15 Blood Culture - Preliminary Blood - Venous No growth after 48 hours. 05/23/20 00:14 Blood Culture - Preliminary Blood - Venous No growth after 48 hours. Discharge Plan Discharge Patient Disposition: Home, Self-Care Referrals: Physician,Unknown [Primary Care Provider] - Discharge Medications: New dexamethasone 6 mg tablet 6 mg PO DAILY Qty: 7 RF: 0 codeine-guaifenesin 10-100 mg/5 mL Liquid 10 ml PO Q6H PRN (Reason: Cough) Qty: 120 RF: 0 albuterol sulfate [Ventolin HFA] 90 mcg/actuation Hfa Aerosol Inhaler 2 puff inhalation RQ4H PRN (Reason: Shortness Of Breath/Wheezing) Qty: 1 RF: 0 Continued ibuprofen 400 mg tablet 400 mg PO Q6H PRN (Reason: pain) Qty: 20 RF: 0 doxycycline hyclate 100 mg capsule 100 mg PO BID Qty: 14 RF: 0 Discharge Orders: Discharge Order (Routine); Ordered 05/26/20 Ordered By: Austin Shi Diet: advance to usual diet Activity on Discharge: As tolerated Discharge Date/Time: 05/26/20 14:09 Visit Report Forms: Patient Portal Discharge page Care Plan Goals: Patient came with possible lung infection probably related to COVID: With supportive care dexamethasone and cough medication patient seems to be improving, does not require any oxygen currently feels more comfortable: Patient going to go home with dexamethasone and cough medication. Further management outpatient as per PCP. Patient has slightly elevated liver function test probably related to COVID which are slowly improving but patient needs to check her liver functions outpatient as per PCP in a week if possible. Health Concerns: As above. Plan of Treatment: As above.
== END 2020-05-26 14:09 | disposition home or self-care (01) | DRG 137 ==
LOC: HO.ED 05-23 03:09 → HO.IMC 05-23 04:19
PROVIDERS: Internal Medicine; Nurse Practitioner Primary Care; Admitting Provider Internal Medicine; Emergency Provider Internal Medicine; Visit Provider Internal Medicine
DX: U07.1 COVID-19 (principal); J12.89 Other viral pneumonia; R74.01 Elevation of levels of liver transaminase levels; D72.819 Decreased white blood cell count, unspecified; J45.909 Unspecified asthma, uncomplicated; F17.210 Nicotine dependence, cigarettes, uncomplicated; Z71.6 Tobacco abuse counseling; Z88.0 Allergy status to penicillin; Z79.1 Long term (current) use of non-steroidal anti-inflammatories (NSAID); Z79.899 Other long term (current) drug therapy
CPT/HCPCS: 36415; 71045; 80048; 80053; 80076; 83605; 83880; 84484; 85025; 85379; 85610; 85730; 86769; 87040; 87389; 87633; 96365; 96375; 99285; J1100; J1650; J1956; J2930; U0003

== ENCOUNTER 2020-09-30 19:26 | Emergency (ER) | payer OTHER, SELFPAY ==
--- NOTE | 2020-09-30 | ECG_ITS ---
Test Reason : CP Blood Pressure : / mmHG Vent. Rate : 092 BPM Atrial Rate : 092 BPM P-R Int : 128 ms QRS Dur : 076 ms QT Int : 362 ms P-R-T Axes : 075 048 023 degrees QTc Int : 447 ms Normal sinus rhythm Nonspecific ST abnormality Abnormal ECG When compared with ECG of 23-NOV-2019 13:10, No significant change was found Referred By: Generic ED Physician Electronically Signed By:Umesh Chapa
--- NOTE | ~2020-09-30 | XR_ITS ---
EXAMINATION: PORTABLE CHEST 1 VIEW CLINICAL INFORMATION: cp . COMPARISON: 05/22/2020. TECHNIQUE: Portable frontal view of the chest was obtained. FINDINGS: The lungs are well expanded. No focal infiltrate, effusion, edema, or pneumothorax. Cardiac and mediastinal silhouettes are within normal limits for technique. No acute bony abnormality seen. XR/XR chest 1V IMPRESSION: No evidence of acute disease.
[2020-09-30 19:34] VITALS: BP 169/97; PULSE 93; RESP 16; TEMP 37.1; O2SAT 99; BMI 36.6
--- NOTE | 2020-09-30 22:04 | ED.CHESTPAIN ---
HPI - Chest Pain General Chief Complaint: Chest Pain Stated Complaint: chest pain Time Seen by Provider: 09/30/20 22:04 Source: patient Mode of arrival: ambulatory Limitations: no limitations History of Present Illness HPI narrative: Patient had COVID 2 times last here 11/11 and 05/13 with history of asthma for last few days been having palpitation episodes with chest pain and felt almost passing out today palpitations lasted for hours . Today symptoms started at 11:00 none at this time on arrival patient was not complaining of palpitation. Patient has not seen any PCP for this yet MD complaint: chest discomfort Related Data Previous Rx's Medication Instructions Recorded doxycycline hyclate 100 mg PO BID #14 cap 05/20/20 ibuprofen 400 mg PO Q6H PRN #20 tab 05/20/20 albuterol sulfate [Ventolin HFA] 2 puff INHALATION RQ4H PRN #1 g 05/26/20 codeine-guaifenesin 10 ml PO Q6H PRN #120 ml 05/26/20 dexamethasone 6 mg PO DAILY #7 tab 05/26/20 Allergies Allergy/AdvReac Type Severity Reaction Status Date / Time Penicillins [PENICILLINS] Allergy Unknown HIVES Verified 05/20/20 04:48 Review of Systems Review of Systems: Constitutional : No Weight loss, No Fever, No Chills ENT/Mouth : No sore throat, No Rhinorrhea Eyes: No Eye Pain, No Swelling Cardiovascular : + Chest Pain, + palpitations Respiratory : No Cough, No Sputum, no shortness of breath Gastrointestinal : no Nausea, No Vomiting, No Diarrhea, No abdominal Pain, no black stools Genitourinary : No Dysuria, No Urinary Frequency Musculoskeletal : No joint pain, No Myalgias, No Joint Swelling Skin : No Skin Lesions, No rash Neuro : No Weakness, No Numbness, +Dizziness, No Headache Psych : No Anxiety/Panic, No Depression Heme/Lymph: No Bruising, No Lymphadenopathy Endocrine : No Polyuria, No Polydipsia All other systems reviewed and are negative [facility] Past Medical History Medical History Asthma COVID-19 Surgical History H/O hernia repair H/O: Social History Social History Household Members: Family Housing: House Alcohol intake: never Smoking Status: Current some day smoker Tobacco Type: Cigarette Cigarettes Per Day: 1 Smoked in Last 30 Days: No Second Hand Smoke Exposure: No Advance Directives: No service: No Current occupational status: employed Physical Exam Vital Signs: Vital Signs: Last Vital Signs Temp 98.7 F 09/30/20 19:34 Pulse 81 09/30/20 23:35 Resp 16 09/30/20 23:35 BP 149/92 H 09/30/20 23:35 Pulse Ox 99 09/30/20 23:35 Body Mass Index 36.6 Appearance: Alert. Oriented X3. No acute distress. Eyes: Pupils equal, round and reactive to light. ENT: Pharynx normal. Neck: Normal inspection. Neck supple. CVS: Normal heart rate and rhythm. Pulses normal. Respiratory: No respiratory distress. Breath sounds normal. Abdomen: Soft and nontender. Bowel sounds are present, no mass palpable, no CVA tenderness Skin: Skin warm and dry. Normal skin color. Normal skin turgor. Extremities: No lower extremity edema. No calf tenderness Neuro: Oriented X 3. No motor deficit. No sensory deficit. MDM - Chest Pain MDM Narrative Medical decision making narrative: Patient's symptoms likely from SVT likely unrelated to COVID patient seemed to be slightly anxious also non documented tachycardia on arrival patient's heart rate was 92 beats per minute sinus rhythm will watch her for sometime color television console monitor to the cardiac enzymes and TSH Patient TSH is normal no delta change in troponin. Will discharge patient home likely patient has SVT/anxiety advised to follow-up with pocket and pulley machine operator for Holter monitoring Medical Records Data Attestation: I reviewed the patient's medical records. Lab Data Attestation: I reviewed the patient's lab results. Result diagrams: 09/30/20 22:47 09/30/20 22:47 Labs: Lab Results 09/30/20 09/30/20 09/30/20 Range/Units 22:47 22:47 22:47 WBC 5.7 (4.8-10.8) X10*3/uL RBC 3.83 L (4.20-5.50) X10*6/uL Hgb 10.0 L (12.0-16.0) g/dl Hct 33.2 L (37-47) % MCV 86.7 (80-98) fL MCH 26.1 L (27.0-33.0) pg MCHC 30.1 L (31.0-35.0) g/dl RDW 15.1 (11.0-16.0) % Plt Count 256 (160-400) X10*3/uL MPV 10.9 (9.4-12.3) fL Immature Gran % (Auto) 0.2 (0.0-0.4) % Neut % (Auto) 55.3 (45-73) % Lymph % (Auto) 29.5 (20-40) % Dukes % (Auto) 10.0 (2-11) % Eos % (Auto) 4.5 H (0-4) % Baso % (Auto) 0.5 (0-2) % Lymph # (Auto) 1.7 (1.2-4.9) X10*3/uL Dukes # (Auto) 0.6 (0.1-1.2) X10*3/uL Eos # (Auto) 0.3 (0.0-0.4) X10*3/uL Baso # (Auto) 0.0 (0.0-0.2) X10*3/uL Abs Immat Gran (auto) 0.01 (0.00-0.03) X10*3/uL Absolute Neuts (auto) 3.2 (2.0-8.3) X10*3/uL Absolute Nucleated RBC 0.000 (0.0-0.012) X10*3/uL Nucleated RBC % (auto) 0.0 (0.0-0.2) /100WBC Sodium 140 (135-145) mmol/L Potassium 4.1 (3.3-5.1) mmol/L Chloride 107 (96-108) mmol/L Carbon Dioxide 24 (22-29) mmol/L Anion Gap 13 (12-20) BUN 18 H (9-16) mg/dL Creatinine 0.81 (0.5-1.4) mg/dL Estim Creat Clear Calc 97.7 Estimated GFR > 60 Random Glucose 130 H (60-115) mg/dL Calcium 9.8 D (8.4-10.2) mg/dL Troponin I High Sens 18.0 H D (<3.5-17.0) ng/L TSH 3.47 (0.32-4.0) uIU/mL ECG Data ECG #1: Attestation: I personally reviewed and interpreted this ECG as follows: Interpretation: Normal sinus rhythm heart rate 92 beats per minute normal intervals normal axis no acute ST T wave changes impression no acute ischemia Discharge Plan Discharge Clinical Impression: Paroxysmal supraventricular tachycardia Chest pain Qualifiers: Chest pain type: unspecified Qualified Code(s): R07.9 - Chest pain, unspecified Patient Disposition: Home, Self-Care Instructions: Supraventricular Tachycardia (ED) Additional Instructions: You possibly had tachycardia. Etiology not very clear. Follow-up with your pocket and pulley machine operator/PCP for further monitoring including Holter testing Prescriptions: No Action ibuprofen 400 mg tablet 400 mg PO Q6H PRN (Reason: pain) Qty: 20 RF: 0 doxycycline hyclate 100 mg capsule 100 mg PO BID Qty: 14 RF: 0 dexamethasone 6 mg tablet 6 mg PO DAILY Qty: 7 RF: 0 codeine-guaifenesin 10-100 mg/5 mL Liquid 10 ml PO Q6H PRN (Reason: Cough) Qty: 120 RF: 0 albuterol sulfate [Ventolin HFA] 90 mcg/actuation Hfa Aerosol Inhaler 2 puff inhalation RQ4H PRN (Reason: Shortness Of Breath/Wheezing) Qty: 1 RF: 0 Referrals: Librado Mendoza MD [Physician] - 1 week (Tachycardia)
[2020-09-30 22:48] VITALS: BP 147/96; PULSE 80; RESP 18; O2SAT 96
[2020-09-30 22:52] LABS: MANUAL DIFF FLAG NO
[2020-09-30 22:53] LABS: Basophils Percent Auto 0.5 % (0-2); Eosinophils Absolute Auto 0.3 X10*3/uL (0.0-0.4); Eosinophils Percent Auto 4.5 % (0-4); Hematocrit 33.2 % (37-47); Imm Gran Abs Auto 0.01 X10*3/uL (0.00-0.03); Imm Gran Pct Auto 0.2 % (0.0-0.4); Lymphocytes Absolute Auto 1.7 X10*3/uL (1.2-4.9); Lymphocytes Percent Auto 29.5 % (20-40); Mean Corpuscular HGB Conc 30.1 g/dl (31.0-35.0); Mean Corpuscular Hemoglobin 26.1 pg (27.0-33.0); Mean Corpuscular Volume 86.7 fL (80-98); Mean Platelet Volume 10.9 fL (9.4-12.3); Monocytes Absolute Auto 0.6 X10*3/uL (0.1-1.2); Neutrophils Absolute Auto 3.2 X10*3/uL (2.0-8.3); Neutrophils Percent Auto 55.3 % (45-73); Platelet Count 256 X10*3/uL (160-400); Red Blood Count 3.83 X10*6/uL (4.20-5.50); Red Cell Distribution Width 15.1 % (11.0-16.0); White Blood Count 5.7 X10*3/uL (4.8-10.8)
[2020-09-30 23:32] LABS: Anion Gap 13 (12-20); Blood Urea Nitrogen 18 mg/dL (9-16); Calcium 9.8 mg/dL (8.4-10.2); Carbon Dioxide 24 mmol/L (22-29); Chloride 107 mmol/L (96-108); Creatinine Clr Calc Pharmacy 97.7; Estimated Glomerular Filt Rate > 60; Glucose Random 130 mg/dL (60-115); Potassium 4.1 mmol/L (3.3-5.1); Sodium 140 mmol/L (135-145)
[2020-09-30 23:35] VITALS: BP 149/92; PULSE 81; RESP 16; O2SAT 99
[2020-09-30 23:53] LABS: Thyroid Stimulating Hormone 3.47 uIU/mL (0.32-4.0)
[2020-10-01] MEDS: Aspirin Enteric Coated 81 MG TABLET.DR 162 MG PO (00:05)
[2020-10-01 01:07] LABS: Troponin-I High Sensitivity 16.8 ng/L (<3.5-17.0)
== END 2020-10-01 01:00 | disposition home or self-care (01) ==
PROVIDERS: Emergency Provider Internal Medicine
DX: I47.1 Supraventricular tachycardia (principal); R07.9 Chest pain, unspecified; F17.210 Nicotine dependence, cigarettes, uncomplicated; Z71.6 Tobacco abuse counseling; Z79.899 Other long term (current) drug therapy
CPT/HCPCS: 36415; 71045; 80048; 84443; 84484; 85025; 93005; 99284

== ENCOUNTER → 2020-10-03 11:49 | Outpatient (REF) | payer OTHER, SELFPAY | LOC: HO.CARD 11:49 | PROVIDERS: Visit Provider Nurse Practitioner Family | DX: R07.89 Other chest pain (principal); R00.2 Palpitations; J45.909 Unspecified asthma, uncomplicated | CPT/HCPCS: 99202 ==

== ENCOUNTER 2020-10-08 17:45 | Emergency (ER) | payer OTHER, SELFPAY ==
--- NOTE | ~2020-10-08 | XR_ITS ---
EXAMINATION: XR CHEST CLINICAL INFORMATION: Chest pain COMPARISON: Chest x-ray 09/30/2020 TECHNIQUE: Frontal view of the chest was obtained. 10:24 PM FINDINGS: No significant abnormality is noted involving the heart, lungs, mediastinum, bony thorax or soft tissues. XR/XR chest 1V IMPRESSION: Unremarkable examination.
[2020-10-08 17:47] VITALS: BP 164/97; PULSE 86; RESP 18; TEMP 36.6; O2SAT 98; BMI 37.5
--- NOTE | 2020-10-08 22:29 | ECG_ITS ---
Test Reason : CHEST PAIN Blood Pressure : / mmHG Vent. Rate : 086 BPM Atrial Rate : 086 BPM P-R Int : 120 ms QRS Dur : 080 ms QT Int : 368 ms P-R-T Axes : 036 062 036 degrees QTc Int : 440 ms Normal sinus rhythm Normal ECG When compared with ECG of 30-SEP-2020 19:43, No significant change was found Referred By: Linda Aburto Electronically Signed By:ALIA BLANKENSHIP MD
--- NOTE | 2020-10-08 22:31 | ED.GENADULT ---
HPI - General Adult General Chief complaint: General Medical Stated complaint: High bp Time Seen by Provider: 10/08/20 22:21 History of Present Illness HPI narrative: Patient 40-year-old female with a history of Coronavirus infection last year. Presented today with worrying that she got another infection with coronavirus. Also complaining that she has chest tightness that is constant. Patient took a blood pressure was elevated. Denies any fever chills. No coughing or congestion or upper respiratory symptoms. No history of blood clots. Not on control. Had her tubes tied. Patient had 5 kids when she was young. She had her tubal ligation when she was 22. Patient does not think she is . No fever no chills. No history of diabetes. No history of hypertension. No history of high cholesterol. Does not smoke. Never had a heart attack. Patient is from home. Related Data Previous Rx's Medication Instructions Recorded albuterol sulfate [Ventolin HFA] 2 puff INHALATION RQ4H PRN #1 g 05/26/20 Allergies Allergy/AdvReac Type Severity Reaction Status Date / Time Penicillins [PENICILLINS] Allergy Unknown HIVES Verified 05/20/20 04:48 Review of Systems Review of Systems: Constitutional: No Weight loss, No Fever, No Chills, No Night Sweats, No Fatigue, No Malaise ENT/Mouth: No Hearing loss, No Ear Pain, No Nasal Congestion, No Sinus Pain, No Hoarseness, No sore throat, No Rhinorrhea, No Swallowing Difficulty Eyes: No Eye Pain, No Swelling, No Redness, No Foreign Body, No Discharge, No Vision Changes Cardiovascular: Positive Chest Pain, No SOB, No Dyspnea on Exertion, No Orthopnea, No Edema, No Palpitations Respiratory: No Cough, No Sputum, No Wheezing, No Smoke Exposure, No Dyspnea Gastrointestinal: No Nausea, No Vomiting, No Diarrhea, No Constipation, No abdominal Pain, No Hematochezia, No Melena Genitourinary: no irregular bleeding, No Dysuria, No Urinary Frequency, No Hematuria, No Urinary Incontinence, No Urgency, No Flank Pain, No Urinary Flow Changes, No Hesitancy Musculoskeletal: No joint pain, No Myalgias, No Joint Swelling Skin: No Skin Lesions, No rash Neuro: No Weakness, No Numbness, No Paresthesias, No Loss of Consciousness, No Dizziness, No Headache Psych: No Anxiety/Panic, No Depression, No SI/HI/AH/VH, No Social Issues, Heme/Lymph: No Bruising, No Bleeding,No Lymphadenopathy Endocrine: No Polyuria, No Polydipsia, No Temperature Intolerance [facility] Past Medical History Medical History Asthma COVID-19 Surgical History H/O hernia repair H/O: Family History Family History Paternal Aunt CAD (coronary artery disease) Social History Social History Household Members: Family Housing: House Alcohol intake: never Smoking Status: Current some day smoker Tobacco Type: Cigarette Cigarettes Per Day: 1 Second Hand Smoke Exposure: No Advance Directives: No service: No Current occupational status: employed Physical Exam Vital Signs: Vital Signs: Last Vital Signs Temp 98.2 F 10/08/20 23:11 Pulse 86 10/09/20 00:23 Resp 16 10/09/20 00:22 BP 162/95 H 10/09/20 00:23 Pulse Ox 100 10/08/20 23:11 Body Mass Index 37.5 Appearance: Alert. Oriented X3. No acute distress. Eyes: Pupils equal, round and reactive to light. ENT: Pharynx normal. Neck: Normal inspection. Neck supple. No lymph nodes noted. No crepitus CVS: Normal heart rate and rhythm. Pulses normal. Normal S1 and S2 Respiratory: No respiratory distress. Breath sounds normal. No Wheezing. No rales Abdomen: Soft and nontender. No rigidity. No distention. good BS x4 Skin: Skin warm and dry. Normal skin color. Normal skin turgor. Extremities: No lower extremity edema. Neurovascular intact to all extremities. No Lacerations. No Rash Neuro: Oriented X 3. No motor deficit. No sensory deficit. Moving all extermities. No slurred speech Medical Decision Making MDM Narrative Medical decision making narrative: Well-appearing no distress. Patient's creatinine is normal. EKG not changed. Electrolytes unremarkable. No evidence for end-organ damage. Patient's wanted a coronavirus test was also negative. Patient case discussed with her. She needs follow-up on an outpatient basis for elevated blood pressure. At the current time in stable condition. Will need a blood pressure recheck in 24-48 hours. Patient states understanding. Lab Data Result diagrams: 10/08/20 23:38 10/08/20 23:38 Labs: Lab Results 10/08/20 10/08/20 10/08/20 Range/Units 23:38 23:38 23:38 WBC 6.6 (4.8-10.8) X10*3/uL RBC 3.98 L (4.20-5.50) X10*6/uL Hgb 10.3 L (12.0-16.0) g/dl Hct 35.1 L (37-47) % MCV 88.2 (80-98) fL MCH 25.9 L (27.0-33.0) pg MCHC 29.3 L (31.0-35.0) g/dl RDW 15.3 (11.0-16.0) % Plt Count 237 (160-400) X10*3/uL MPV 10.3 (9.4-12.3) fL Immature Gran % (Auto) 0.6 H (0.0-0.4) % Neut % (Auto) 46.0 (45-73) % Lymph % (Auto) 35.7 (20-40) % Vermilion % (Auto) 12.9 H (2-11) % Eos % (Auto) 4.3 H (0-4) % Baso % (Auto) 0.5 (0-2) % Lymph # (Auto) 2.4 (1.2-4.9) X10*3/uL Vermilion # (Auto) 0.9 (0.1-1.2) X10*3/uL Eos # (Auto) 0.3 (0.0-0.4) X10*3/uL Baso # (Auto) 0.0 (0.0-0.2) X10*3/uL Abs Immat Gran (auto) 0.04 H (0.00-0.03) X10*3/uL Absolute Neuts (auto) 3.0 (2.0-8.3) X10*3/uL Absolute Nucleated RBC 0.000 (0.0-0.012) X10*3/uL Nucleated RBC % (auto) 0.0 (0.0-0.2) /100WBC Sodium 138 (135-145) mmol/L Potassium 4.4 (3.3-5.1) mmol/L Chloride 105 (96-108) mmol/L Carbon Dioxide 23 (22-29) mmol/L Anion Gap 14 (12-20) BUN 15 (9-16) mg/dL Creatinine 0.70 (0.5-1.4) mg/dL Estim Creat Clear Calc 114.5 Estimated GFR > 60 Random Glucose 106 (60-115) mg/dL Calcium 9.3 (8.4-10.2) mg/dL Beta HCG, Quant mIU/mL COVID-19 (MARIA VICTORIA) Negative (Negative) COVID-19 Clin Com See Note 10/08/20 Range/Units 23:38 WBC (4.8-10.8) X10*3/uL RBC (4.20-5.50) X10*6/uL Hgb (12.0-16.0) g/dl Hct (37-47) % MCV (80-98) fL MCH (27.0-33.0) pg MCHC (31.0-35.0) g/dl RDW (11.0-16.0) % Plt Count (160-400) X10*3/uL MPV (9.4-12.3) fL Immature Gran % (Auto) (0.0-0.4) % Neut % (Auto) (45-73) % Lymph % (Auto) (20-40) % Vermilion % (Auto) (2-11) % Eos % (Auto) (0-4) % Baso % (Auto) (0-2) % Lymph # (Auto) (1.2-4.9) X10*3/uL Vermilion # (Auto) (0.1-1.2) X10*3/uL Eos # (Auto) (0.0-0.4) X10*3/uL Baso # (Auto) (0.0-0.2) X10*3/uL Abs Immat Gran (auto) (0.00-0.03) X10*3/uL Absolute Neuts (auto) (2.0-8.3) X10*3/uL Absolute Nucleated RBC (0.0-0.012) X10*3/uL Nucleated RBC % (auto) (0.0-0.2) /100WBC Sodium (135-145) mmol/L Potassium (3.3-5.1) mmol/L Chloride (96-108) mmol/L Carbon Dioxide (22-29) mmol/L Anion Gap (12-20) BUN (9-16) mg/dL Creatinine (0.5-1.4) mg/dL Estim Creat Clear Calc Estimated GFR Random Glucose (60-115) mg/dL Calcium (8.4-10.2) mg/dL Beta HCG, Quant < 2 mIU/mL COVID-19 (MARIA VICTORIA) (Negative) COVID-19 Clin Com ECG Data Interpretation: Sinus heart rate is 80 TN QRS QT within normal limits there is no acute ST segment elevation. It is unchanged from previous Discharge Plan Discharge Clinical Impression: Hypertension Patient Disposition: Home, Self-Care Instructions: Hypertension (ED) Prescriptions: No Action albuterol sulfate [Ventolin HFA] 90 mcg/actuation Hfa Aerosol Inhaler 2 puff inhalation RQ4H PRN (Reason: Shortness Of Breath/Wheezing) Qty: 1 RF: 0 Referrals: Physician,Unknown [Primary Care Provider] - 1 day (Please follow-up with your doctor in the next 24 hours for close blood pressure recheck. Your blood pressure was extremely elevated today. Needs to be followed up on an outpatient basis.)
[2020-10-08 23:11] VITALS: BP 170/102; PULSE 90; RESP 20; TEMP 36.8; O2SAT 100
--- NOTE | 2020-10-08 23:46 | PC.NURSE ---
graphic technician at bedside @ 2300 obtaining EKG but did not obtain lab work. Covid and labs drawn by this RN. Pt requesting food/drink, provided with such.
[2020-10-08 23:49] LABS: Hematocrit 35.1 % (37-47); Hemoglobin 10.3 g/dl (12.0-16.0); Imm Gran Pct Auto 0.6 % (0.0-0.4); Lymphocytes Percent Auto 35.7 % (20-40); Mean Corpuscular HGB Conc 29.3 g/dl (31.0-35.0); Mean Corpuscular Hemoglobin 25.9 pg (27.0-33.0); Mean Corpuscular Volume 88.2 fL (80-98); Mean Platelet Volume 10.3 fL (9.4-12.3); Platelet Count 237 X10*3/uL (160-400); Red Blood Count 3.98 X10*6/uL (4.20-5.50); Red Cell Distribution Width 15.3 % (11.0-16.0); White Blood Count 6.6 X10*3/uL (4.8-10.8)
[2020-10-08 23:50] LABS: Basophils Percent Auto 0.5 % (0-2); Eosinophils Absolute Auto 0.3 X10*3/uL (0.0-0.4); Eosinophils Percent Auto 4.3 % (0-4); Imm Gran Abs Auto 0.04 X10*3/uL (0.00-0.03); Lymphocytes Absolute Auto 2.4 X10*3/uL (1.2-4.9); MANUAL DIFF FLAG NO; Monocytes Absolute Auto 0.9 X10*3/uL (0.1-1.2); Monocytes Percent Auto 12.9 % (2-11)
[2020-10-09 00:09] LABS: COVID-19 Test Negative (Negative); IDNOW Serial# 9DD0AD1C
[2020-10-09 00:22] VITALS: BP 163/95; PULSE 87; RESP 16
[2020-10-09 00:23] VITALS: BP 162/95; PULSE 86
[2020-10-09 00:25] LABS: Anion Gap 14 (12-20); Blood Urea Nitrogen 15 mg/dL (9-16); Calcium 9.3 mg/dL (8.4-10.2); Carbon Dioxide 23 mmol/L (22-29); Chloride 105 mmol/L (96-108); Creatinine Clr Calc Pharmacy 114.5; Estimated Glomerular Filt Rate > 60; Glucose Random 106 mg/dL (60-115); Potassium 4.4 mmol/L (3.3-5.1); Sodium 138 mmol/L (135-145)
[2020-10-09 00:32] LABS: HCG Quantitative < 2 mIU/mL
[2020-10-09 01:06] VITALS: BP 165/94; PULSE 85; RESP 20
== END 2020-10-09 01:18 | disposition home or self-care (01) ==
PROVIDERS: Emergency Provider Emergency Medicine Emergency Medical Services
DX: R07.89 Other chest pain (principal); I10 Essential (primary) hypertension; F17.210 Nicotine dependence, cigarettes, uncomplicated; Z20.822 Contact with and (suspected) exposure to COVID-19; Z71.6 Tobacco abuse counseling; Z86.16 Personal history of COVID-19
CPT/HCPCS: 36415; 71045; 80048; 84702; 85025; 87635; 93005; 99284

== ENCOUNTER → 2020-11-12 09:45 | Outpatient (REF) | payer OTHER, SELFPAY ==
--- NOTE | 2020-11-12 09:48 | CA_ITS ---
Transthoracic Echocardiogram Patient (Last, First, Middle): Wenceslao Cardona, Gender: Female Date of : 1980 Age: 40 Procedure Date: 11/12/2020 Procedure Type: Transthoracic Echocardiogram Location: OP Height: 157.48 cm Weight: 88.45 kg BSA: 1.89 m2 Heart Rate: bpm BP: 118 / 60 mmHg Can Sealer: DAVID Referring MD: Lucía Chicas BEADING SAWYER-Chitra Symptoms: R00.2 - Palpitations Study Quality: Fair ECG Rhythm: Sinus Conclusions: - The left ventricular systolic function is normal. The visually estimated ejection fraction is between 60-65%. - No obvious valvular pathology seen on this study. Findings Left Ventricle Normal left ventricular cavity size. There is normal left ventricular wall thickness. The left ventricular systolic function is normal. The visually estimated ejection fraction is between 60-65%. There is no evidence of regional wall motion abnormalities. Diastolic function is normal for age. Right Ventricle Normal right ventricular cavity size and systolic function. Atria The left atrium is normal in size. The right atrium is normal in size. Aortic Valve There is a normal trileaflet aortic valve. There is no aortic valve stenosis. There is trace (trivial) aortic valve regurgitation. Mitral Valve The mitral valve appears normal. There is no mitral valve regurgitation. There is no mitral valve stenosis. Pulmonic Valve The pulmonic valve was not well visualized. Tricuspid Valve Normal tricuspid valve structure. There is trace tricuspid valve regurgitation. The pulmonary artery systolic pressure is normal. Great Vessels The aortic annulus and asc aorta are normal in size. Venous The inferior vena cava is normal in size and collapses greater than 50% with inspiration. Pericardium/Pleural There is no evidence of pericardial effusion. Prior Study Comparison No prior study available for comparison. Recommendations, Care & Conclusions No obvious valvular pathology seen on this study. Measurements 2D Linear Measurements IVSd: 0.99 0.6-0.9/0.6-1.0 cm LVIDd: 4.15 3.9-5.3/4.2-5.9 cm LVIDs: 2.64 2.0-3.6 cm LVPWd: 0.99 0.7-1.1 cm Ao Root: 2.94 2.1-3.5 cm LV Mass: 166.10 67-162/88-224 g LVOT Diam: 1.97 3.0+(-)1.3 cm Mitral Valve MV Pk E: 1.16 MV PK A: 0.86 MV Decel Time: 195.12 E/A: 1.35 E'Lateral: 0.13 E'Medial: 0.13 Decel [place]well: 5.94 Aortic Valve AoV Pk Kyrie: 2.04 AoV Mn Kyrie: 1.29 AoV VTI: 0.40 AoV Pk Grad: 16.60 Aov Mn Grad: 7.74 LVOT LVOT Pk Kyrie: 1.10 LVOT Mn Kyrie: 0.77 LVOT VTI: 0.25 LVOT Pk Grad: 4.85 LVOT Mn Grad: 2.72 LVOT Diam: 1.97 LVOT Area: 3.06 Diastolic Function MV Pk E: 1.16 MV Pk A: 0.86 E/A: 1.35 E'Medial: 0.13 E' Laterial: 0.13 Tricuspid Valve TR Pk Kyrie: 2.61 TR Pk Grad: 27.18 RA Press: 3.00 RVSP: 30.00 Great Vessels Aorta Ao Root-2D: 2.94 2.0-3.7 cm Pulmonary Valve PV Pk Kyrie: 1.08 Peak PV Grad: 4.71 Updated in Other Vendor System with Status of Final Josse Bird MD electronically signed on 11/12/2020 12:01:16 PM with status of Final
--- NOTE | 2020-11-12 10:30 | ECG_ITS ---
Hook-up date: 2020-11-12 10:48:00 Duration: 44:19:00 Test Indications: PALPITATIONS Medications: 316020 QRS complexes * Ventricular ectopics which represent % of total QRS comp. 21 Supraventricular ectopics which represent <1 % of total QRS comp. * Paced QRS complexs which represent % of total QRS comp. VENTRICULAR ECTOPY * Isolated * Bigeminal Cycles * Couplets * Runs * Beats in Runs * Beats LONGEST at * BPM at :: -- * Beats FASTEST at * BPM at :: -- SUPRAVENTRICULAR ECTOPY 15 Isolated 3 Couplets 0 Runs 0 Beats in Runs * Beats LONGEST at * BPM at :: -- * Beats FASTEST at * BPM at :: -- HEART RATES 53 MIN at 07:10:18 2020-11-13 87 AVG 143 MAX at 20:21:40 2020-11-12 LONGEST RR 1.1840 secs at 07:10:17 2020-11-13 S-T LEVELS Channel 1 - 128 mm at 10:48:00 2020-11-12 - 128 mm at 10:48:00 2020-11-12 Channel 2 - 128 mm at 10:48:00 2020-11-12 - 128 mm at 10:48:00 2020-11-12 Channel 3 - 128 mm at 03:00:71 -- - 128 mm at 03:00:71 Basic rhythm Normal sinus rhythm No long pause or profound bradycardia Rare Premature atrial complexes Patient did not report any symptoms in the diary Referred By: Lucía Chicas Overread By: ALIA BLANKENSHIP MD
== END ==
LOC: HO.CARD 09:45
PROVIDERS: Visit Provider Nurse Practitioner Family
DX: R07.89 Other chest pain (principal); R00.2 Palpitations
CPT/HCPCS: 93225; 93226; 93306

== ENCOUNTER → 2020-12-04 11:41 | Outpatient (BNVA) | payer OTHER, SELFPAY | PROVIDERS: Visit Provider Nurse Practitioner Family ==

== ENCOUNTER 2024-06-25 15:10 | Emergency (ER) | payer MEDICAID, SELFPAY ==
[2024-06-25 15:51] VITALS: BP 188/95; PULSE 86; RESP 18; TEMP 36.8; O2SAT 97; BMI 41.7
--- NOTE | 2024-06-25 15:58 | ED.GENADULT ---
HPI - General Adult General Chief complaint: Eye Problems Stated complaint: left eye burning and watery Time Seen by Provider: 06/25/24 18:33 History of Present Illness ED Provider: Alexandra BARRON narrative: The patient says that a couple of months ago she had some semi permanent eyelashes attached to the eyelids of both eyes. She felt that while she was wearing the eyelashes her vision seemed blurry and abnormal. She assume this was because the eyelashes were in the way of her eyes. Yesterday she had the eyelashes removed. She still feels that she is having blurry vision. She feels her vision is worse than usual. She has some discomfort in her eyes which is more prominent in the left eye. She has not had any drainage. She has not noticed any redness. She says that she contacted her primary care doctor's office because she is concerned about her visual symptoms. She was advised to go to an emergency room and so she came here. Related Data Home Medications ?Medication ?Instructions ?Recorded ?Confirmed lisinopril 5 mg tablet 5 mg PO DAILY 12/04/20 12/04/20 Previous Rx's ?Medication ?Instructions ?Recorded albuterol sulfate 90 mcg/actuation 2 puff inhalation RQ4H PRN 05/26/20 aerosol inhaler (Ventolin HFA) Shortness Of Breath/Wheezing #1 g Allergies Allergy/AdvReac Type Severity Reaction Status Date / Time Penicillins [PENICILLINS] Allergy Unknown HIVES Verified 06/25/24 15:55 Review of Systems Review of Systems: Yes all other systems are reviewed and are negative [facility] Past Medical History Medical History Asthma COVID-19 Surgical History H/O hernia repair H/O: Family History Family History Paternal Aunt CAD (coronary artery disease) Social History Social History Household Members: Family Housing: House Do you presently have visiting nurse or other home services: No Alcohol intake: never Comment: slepinh Cigarettes Per Day: 1 Second Hand Smoke Exposure: No Advance Directives: No Advance Directives Information Provided: Yes service: No Current occupational status: employed Physical Exam ED Vital Signs: Vital Signs - 24 hr 06/25/24 15:51 06/25/24 18:48 Temperature 98.3 F 98.1 F Pulse Rate 86 83 Respiratory Rate 18 16 Blood Pressure 188/95 H 191/109 H Pulse Oximetry 97 99 Oxygen Delivery Method Room Air Room Air BMI result Body Mass Index 41.7 Const Other: The patient is a 44-year-old woman who was awake and alert. She does not appear in any distress. She had no obvious abnormality to the eyes. HENMT Other: Face is symmetrical. Mucous membranes moist. No obvious facial abnormality of any kind. Eyes Other: Pupils are round, equal, and reactive to light. In a darkened room the eyes dilated great deal. They constrict briskly to light. Eyes are symmetrical. Extraocular movements are intact. Funduscopic exam was limited but did not show any obvious abnormality. Visual acuity was 20/25 in each eye tested separately. Unenhanced slit-lamp exam did not show any obvious corneal abnormalities. The anterior chambers are clear. There is no perilimbal flushing. Conjunctivae are normal with slit-lamp exam. Resp Effort & Inspection: normal respiratory effort Skin Other: Skin of the eyelids and the face are unremarkable. Neuro Other: The patient is awake and alert with a normal mental status. Face is symmetrical. Speech is clear. Eye movements are intact, pupillary responses are intact, visual acuity is 20/25 in each eye tested separately. She moves her extremities normally and appropriately. Gait is steady. She seems neurologically intact. Extrem Other: No peripheral edema. Medical Decision Making Medical Decision Making MDM Narrative: 43-year-old female presents to ED for bilateral eye evaluation. Patient has said by permanent analysis placed in both eyes now stating some blurry vision right eye and crusting in both eyelids. Patient had lashes removed 2 days ago. Patient has no neuro deficits. Blood pressure elevated. Patient admits to not taking her lisinopril today. AZALEA Tucker. The patient was seen by the physician assistant restaurant general manager at triage. I saw the patient later. Her visual acuity is 20/25 in each eye tested separately. The patient looks quite well. There is no redness to the conjunctiva. Pupils are briskly reactive. They dilate fully in a dark room and constrict nicely with light. Extraocular movements are intact. No evidence of a foreign body in the eyes. No signs of conjunctival injection or perilimbal flushing. Visual acuity is quite good in each eye. My overall impression is that the patient's eyes seem quite well. She complains of blurry vision but has quite good vision in each eye. I do not see an indication for additional testing in the emergency room and I think she may be referred to Ophthalmology for a more definitive opinion. Discharge Plan Discharge Clinical Impression: Blurry vision, bilateral, Discomfort of left eye Patient Disposition: Home, Self-Care Additional Instructions: Currently your eye exam seems reassuring. Your visual acuity is quite good in both eyes. I think it would be good for you to see an eye doctor for a more definitive opinion about your symptoms. Please contact Dr. Parnell's office tomorrow morning to try to set up an appointment in follow up. Return to the emergency room if significantly worse. Prescriptions: No Action albuterol sulfate [Ventolin HFA] 90 mcg/actuation Hfa Aerosol Inhaler 2 puff inhalation RQ4H PRN (Reason: Shortness Of Breath/Wheezing) Qty: 1 0RF lisinopril 5 mg tablet 5 mg PO DAILY Referrals: Bret Parnell [Physician] - (Bilateral eye blurriness, left eye discomfort) Pari Willis CNP [Nurse Practitioner] - (eye compliants) Print Language: Jordanian
[2024-06-25 18:48] VITALS: BP 191/109; PULSE 83; RESP 16; TEMP 36.7; O2SAT 99
[2024-06-25 20:00] VITALS: BP 191/109; PULSE 83; RESP 16; TEMP 36.7; O2SAT 99
== END 2024-06-25 20:01 | disposition home or self-care (01) ==
PROVIDERS: Emergency Provider Emergency Medicine
DX: H53.8 Other visual disturbances (principal); H57.12 Ocular pain, left eye
CPT/HCPCS: 99282